=== PATIENT | male | born 1985 | race Caucasian/White ===

== ENCOUNTER 2020-11-02 07:53 | Inpatient (IN) | payer OTHER ==
[2020-11-02] VITALS (14 sets, daily range): BP systolic 91–138; BP diastolic 65–95
[~2020-11-02] VITALS: Ht 152.4 cm; Wt 47.2 kg
[2020-11-02] MEDS ORDERED: IV NS 0.9% 1,000 ML BAG IV ONE (08:00)
[2020-11-02] MEDS ORDERED: VANCOMYCIN 1 GM in IV D5W 250 ML IV ONE (08:00)
[2020-11-02] MEDS ORDERED: ACETAMINOPHEN 650 MG/SUPP.RECT RC ONE ×2 (08:00→08:02)
[2020-11-02] MEDS ORDERED: PIPERACILLIN /TAZOBACTAM 3.375 G in IV D5W 50 ML IV ONE (08:00)
--- NOTE | 2020-11-02 08:10 | NUR ---
Patient bibra, from care facility, tachypneic/tachycardic/02 desaturation. On vent and trach, GT and huerta in placed. connected to the monitor and pulse ox. kept comfortable, will continue to monitor accordingly. MD at bedside for eval.
--- NOTE | 2020-11-02 08:12 | NUR ---
Cooling measures initiated.
[2020-11-02 08:14] LABS: BASOPHILS # (AUTO) 0.1 /CMM (0.0-0.2); EOSINOPHILS % (AUTO) 1.5 % (0.0-6.0); HEMATOCRIT 39 % (39-51); LYMPHOCYTES # (AUTO) 1.6 /CMM (0.8-4.8); LYMPHOCYTES % (AUTO) 10.9 % (20.0-44.0); MEAN CORPUSCULAR HGB CONC 31 g/dl (31.0-36.0); MEAN CORPUSCULAR VOLUME 81 fL (80-96); MONOCYTES # (AUTO) 0.4 /CMM (0.1-1.30); MONOCYTES % (AUTO) 2.6 % (2.0-12.0); NEUTROPHILS # (AUTO) 12.3 /CMM (1.8-8.9); PLATELET COUNT (AUTO) 564 /CMM (150-450); RED BLOOD CELL COUNT(AUTO) 4.86 MIL/uL (4.5-6.0); WHITE BLOOD COUNT (AUTO) 14.7 K/uL (4.3-11.0)
[2020-11-02 08:22] LABS: CALCIUM, SERUM 8.7 mg/dL (8.5-10.1); CARBON DIOXIDE 23 mmol/L (21-32); CHLORIDE 107 mmol/L (98-107); CREATININE 0.8 mg/dL (0.6-1.3); GLUCOSE 146 mg/dL (74-106); POTASSIUM 4.5 mmol/L (3.5-5.1); SODIUM SERUM 146 mmol/L (136-145); UREA NITROGEN, BLOOD 22 mg/dL (7-18)
[2020-11-02 08:26] LABS: BILIRUBIN,URINE Negative (NEGATIVE); COLOR,URINE YELLOW (YELLOW); LEUKOCYTE ESTERASE ,URINE Small (NEGATIVE); NITRITE, URINE Positive (NEGATIVE); PROTEIN,URINE Negative (NEGATIVE); UGLUCOSE Negative (NEGATIVE); UROBILINOGEN,URINE 0.2 EU/dL (0.2)
[2020-11-02 08:28] LABS: BACTERIA,URINE Few /HPF (None Seen); HYALINE CASTS, URINE Few /LPF (None Seen); SQUAMOUS EPITHELIAL CELL,UR Rare /HPF (None Seen)
[2020-11-02] MEDS ORDERED: ENOX30DI SQ (08:33)
[2020-11-02] MEDS ORDERED: NA P133E RC (08:33)
[2020-11-02] MEDS ORDERED: BISA10SU11 RC (08:33)
[2020-11-02] MEDS ORDERED: ACET325T53 PO (08:33)
[2020-11-02] MEDS ORDERED: TPN (08:33)
[2020-11-02] MEDS ORDERED: CHLO473M3 MM (08:33)
[2020-11-02] MEDS ORDERED: LEVA15HF4 IH ×2 (08:33)
[2020-11-02 08:35] LABS: ALANINE AMINOTRANSFERASE 81 U/L (12-78); ALBUMIN 3.2 g/dL (3.4-5.0); ALKALINE PHOSPHATASE 432 U/L (46-116); ASPARTATE AMINOTRANSFERASE 46 U/L (15-37); BILIRUBIN,DIRECT 1.6 mg/dL (0.0-0.2); BILIRUBIN,TOTAL 1.9 mg/dL (0.2-1.0); TOTAL PROTEIN, SERUM 9.3 g/dL (6.4-8.2)
[2020-11-02 08:36] LABS: B-TYPE NATRIURETIC PEPTIDE 21 PG/ML (0-125)
[2020-11-02 09:08] LABS: ABG BASE EXCESS -7.6 mmol/L; ABG OXYGEN SATURATION 98.8 % (92.0-98.5); ABG PCO2 32.7 mmHg (35.0-45.0); ABG PH 7.339 (7.350-7.450); ABG PO2 177.3 mmHg (75.0-100.0); AaDO2 70.3 mmHg; COHb 0.3 % (0.5-1.5); MetHb 0.7 % (0.0-1.5); O2Hb 97.8 % (94.0-97.0); PEEP,BG 5 cm H2O; SITE, ABG Right Brachial; VT, ABG 450 mL
[2020-11-02] MEDS ORDERED: IV NS 0.9% 250 ML IV ONE (09:20)
[2020-11-02] MEDS ORDERED: CT SWABBABLE VALVE TRANS SET 1 EA INFUS.SET MC ONE (09:20)
[2020-11-02] MEDS ORDERED: IOHEXOL-300 100 ML VIAL IV ONE (09:20)
--- NOTE | 2020-11-02 09:26 | NUR ---
BED 258
--- NOTE | 2020-11-02 09:33 | NUR ---
covid 19 swab collected and sent to lab
--- NOTE | 2020-11-02 09:45 | NUR ---
report given to Laureen WINSTON for torin
--- NOTE | 2020-11-02 10:28 | NUR ---
wheeled patient via gurney accompanied by RN, RT, and emt in no distress. RN at bedside to assume care.
[2020-11-02] MEDS ORDERED: PIPERACILLIN /TAZOBACTAM 3.375 G in IV D5W 50 ML IV SCH ×2 (10:30→10:45)
[2020-11-02] MEDS ORDERED: IV D5/ 0.9% NACL 1,000 ML IV PRN (10:30)
--- NOTE | 2020-11-02 10:30 | NUR ---
RN INITIAL NOTES RECEIVED PT FROM ER VIA PO. PT OPEN EYES, DOES NOT FOLLOWS COMMAND. TRACH IN PLACE, ON VENT. NO RESPIRATORY DISTRESS NOTED. NO SOB NOTED. NO SIGNS OF PAIN NOTED. PT CONNECTED TO MONITOR, HR 130S-140S NOTED. LOLA PICC AND CANO IN PLACE, PRESENT ON ADMISSION. GTUBE AND JTUBE TO DRAIN BY GRAVITY. SKIN INTACT. DR BALDWIN NOTIFIED. AWAITING ADMISSION ORDERS. WILL CLOSELY MONITOR
[2020-11-02] MEDS: IV D5/ 0.9% NACL 1,000 ML IV PRN (11:20)
--- NOTE | 2020-11-02 12:00 | NUR ---
RN NOTES [address] DOHERTY. AWARE OF CURRENT'S STATUS, ADMISSION ORDERS MADE. MD CALLED MAXIMINO (MOTHER) AND DISCUSSED PLAN OF CARE [address] ALVARENGA. AWARE OF CT CHEST/ABDOMEN/PELVIS. PER MD, NO SURGICAL INTERVENTION NEEDED. WILL MONITOR
[2020-11-02] MEDS ORDERED: BISACODYL SUPP (10 MG) 10 MG/SUPP.RECT SUPP.RECT RC PRN (12:30)
[2020-11-02] MEDS ORDERED: ACETAMINOPHEN 325 MG TABLET PO PRN (12:30)
[2020-11-02] MEDS ORDERED: IPRATROPIUM NEB FS 0.5 MG/2.5 ML AMPUL.NEB NEB PRN (12:30)
[2020-11-02] MEDS ORDERED: METOPROLOL TARTRATE 25 MG TABLET JT SCH (12:30)
[2020-11-02] MEDS ORDERED: IV NS 0.9% 1,000 ML IV ONE ×2 (12:30→22:00)
[2020-11-02] MEDS ORDERED: MEROPENEM 500 MG in IV NS 0.9% 50 ML IV SCH (13:00)
[2020-11-02] MEDS: MICAFUNGIN SODIUM 100 MG in IV NS 0.9% 100 ML IV SCH (13:57)
[2020-11-02] MEDS ORDERED: PIPERACILLIN /TAZOBACTAM 3.375 G in IV D5W 100 ML IV SCH (14:00)
[2020-11-02] MEDS: MEROPENEM 1 G in IV NS 0.9% 100 ML IV SCH ×2 (15:12→22:51)
[2020-11-02] MEDS: VANCOMYCIN 0.75 GM in IV D5W 250 ML IV SCH (16:58)
--- NOTE | 2020-11-02 17:33 | NUR ---
PT. 35 Y OLD MALE REC. IN ER @ 8867 TRACH'Christo SRINIVASA # 6 PLACED ON VENT WITH NOTED SETTINGS, PER MD ORDER ALARMS ARE SET AND FUNCTIONAL, CONTINUE TO MONITOR. B/S BILATERALLY RALES SUCTIONED FOR SMALL WHITE SECRETIONS. AMBU BAG REMAIN AT THE BEDSIDE. ABG DONE RESULTS REPORTED TO ER MD PT. TRANSFERRED CT THAN TO ICU AND REPORT WILL BE PASS TO SATELLITE DISH TECHNICIAN. Addendum: 11/02/20 at 1737 by HELENA KAM RT Amended: Links added.
--- NOTE | 2020-11-02 18:50 | NUR ---
RN CLOSING NOTES NO SIGNIFICANT CHANGE NOTED. NO RESPIRATORY DISTRESS NOTED. NO SOB NOTED. IVF INFUSING. GTUBE AND JTUBE REMAINS CONNECTED TO DRAIN BY GRAVITY. CANO IN PLACE. KEPT CLEAN AND DRY.KEPT COMFORTABLE. WILL ENDORSE FOR CONTINUITY OF CARE
--- NOTE | 2020-11-02 19:00 | NUR ---
RN NOTE RECEIVED PATIENT IN BED, NON VERBAL, IN NO S/SX OF ACUTE DISTRESS AT THIS TIME, ON TRACH SHILEY#6 CONNECTED TO MECHANICAL VENTILATOR WITH SETTINGS FOLLOWS: AC 20, TV 450, FIO2 40%, PEEP 15, SATURATION AT 100%, ST ON THE MONITOR, HR IS 103. NOTED BUE BLE CONTRACTED. NOTED LOLA PICC LINE, ALL HUBS PATENT AND FLUSHING WELL, NO S/S OF INFECTION, WITH D5 NS INFUSING AT 100 ML/HR. NOTED GTUBE DRAINING TO A GREENISH OUTPUT, AND JTUBE DRAINING TO A YELLOWISH OUTPUT, CONNECTED TO DRAIN BY GRAVITY. CANO CATHETER CONNECTED TO URINE BAG IN PLACE, DRAINING TO A CLEAR YELLOW OUTPUT. SAFETY MEASURES IMPLEMENTED. PATIENT BED ALARM IS ON. HEAD OF BED ELEVATED. BED IS LOCKED, IN LOWEST POSITION AND SIDE RAILS UP. CALL LIGHT WITHIN REACH OF THE PATIENT. WILL CONTINUE TO MONITOR AND REASSESS FOR ANY CHANGES.
--- NOTE | 2020-11-02 19:45 | NUR ---
PT RCVD TRACH'D SHIILEY 6 ON VENT WITH THE SETTINGS OF AC 20, VT 450, FIO2 40% , PEEP 5. SX DONE. VENT PLUGGED INTO RED OUTLET, VENT ALARMS ON AND AUDIBLE. LIABILITY CLAIMS ADJUSTER DONE. WILL CONTINUE TO MONITOR THE PT T/O THE SHIFT
--- NOTE | 2020-11-02 21:00 | NUR ---
RN NOTE NOTED PATIENT WITH SCHEDULED MEDICATION METOPROLOL 25 MG, HOWEVER BP AT LOW 90'S, BP AT 2115 82/58, CURRENTLY ON NPO STATUS WITH GTUBE AND JTUBE CONNECTED TO DRAIN BY GRAVITY DUE TO COMPLEX RETROPERITONEAL COLLECTION POSSIBLE HEMATOMA OR ABSCESS. DR BALDWIN WAS NOTIFIED, CURRENT HR 107. ORDERS RECEIVED TO DISCONTINUE METOPROLOL 25MG, AND TO ADMINISTER NS 1000 ML BOLUS. TRAILER TECHNICIAN MADE AWARE.
[2020-11-03] VITALS (27 sets, daily range): BP systolic 87–119; BP diastolic 60–97
[2020-11-03] MEDS: VANCOMYCIN 0.75 GM in IV D5W 250 ML IV SCH ×3 (00:04→16:41)
[2020-11-03] MEDS: IV D5/ 0.9% NACL 1,000 ML IV PRN ×2 (03:52→21:04)
[2020-11-03 04:25] LABS: BASOPHILS % (AUTO) 0.7 % (0.0-2.0); EOSINOPHILS % (AUTO) 0.9 % (0.0-6.0); HEMATOCRIT 27 % (39-51); HEMOGLOBIN 8.5 g/dL (13.5-17.5); LYMPHOCYTES # (AUTO) 0.7 /CMM (0.8-4.8); LYMPHOCYTES % (AUTO) 18.1 % (20.0-44.0); MEAN CORPUSCULAR HGB CONC 32 g/dl (31.0-36.0); MEAN CORPUSCULAR VOLUME 80 fL (80-96); MONOCYTES # (AUTO) 0.2 /CMM (0.1-1.30); MONOCYTES % (AUTO) 5.6 % (2.0-12.0); NEUTROPHILS % (AUTO) 74.7 % (43.0-81.0); PLATELET COUNT (AUTO) 210 /CMM (150-450); RED BLOOD CELL COUNT(AUTO) 3.32 MIL/uL (4.5-6.0); WHITE BLOOD COUNT (AUTO) 4.1 K/uL (4.3-11.0)
[2020-11-03 04:36] LABS: CALCIUM, SERUM 6.5 mg/dL (8.5-10.1); CREATININE 0.5 mg/dL (0.6-1.3); MAGNESIUM 1.5 mg/dL (1.8-2.4)
[2020-11-03 04:48] LABS: POTASSIUM 2.4 mmol/L (3.5-5.1)
[2020-11-03] MEDS: MEROPENEM 1 G in IV NS 0.9% 100 ML IV SCH ×3 (06:06→23:11)
--- NOTE | 2020-11-03 07:14 | NUR ---
RN NOTE PATIENT REMAINS IN BED, NON VERBAL, ON TRACH SHILEY#6 CONNECTED TO MECHANICAL VENTILATOR WITH SETTINGS FOLLOWS: AC 20, TV 450, FIO2 40%, PEEP 15, SATURATION AT 100%, ST ON THE MONITOR, HR IS AT 100-110'S. D5 NS INFUSING AT 100 ML/HR VIA LOLA PICC LINE. NOTED GTUBE DRAINING TO A GREENISH OUTPUT, AND JTUBE DRAINING TO A YELLOWISH OUTPUT, CONNECTED TO DRAIN BY GRAVITY. CANO CATHETER CONNECTED TO URINE BAG IN PLACE. SAFETY MEASURES IMPLEMENTED. PATIENT BED ALARM IS ON. HEAD OF BED ELEVATED. BED IS LOCKED, IN LOWEST POSITION AND SIDE RAILS UP. ENDORSED TO FERNANDA WINSTON FOR CONTINUATION OF CARE
[2020-11-03] MEDS: POTASSIUM CL. PREMIX PERIPHER. 50 ML IV SCH ×8 (09:55→18:50)
[2020-11-03] MEDS: Magnesium 1GM/D5W 100ML PREMIX 100 ML IV SCH ×2 (10:29→11:44)
[2020-11-03] MEDS: MICAFUNGIN SODIUM 100 MG in IV NS 0.9% 100 ML IV SCH (13:22)
--- NOTE | 2020-11-03 14:11 | NUR ---
RN NOTE 0715: Received patient awake, does not comprehend. All extremities contracted. With trache, tolerated settings. ST 100's in the monitor. LOLA PICC intact, IVF infusing as ordered. Cortez cath intact, noted with cuco colored urine drained to BSD. With GT and JT intact, both to BSD. 0815: S/E by Dr. Qureshi, K supplement ongoing. 0900: S/E by Dr. Mccauley, no new order at this time. 1100: Mother visited and signed consent CT abscess drainage. Awaiting IR for schedule. 1400: No any significant changes noted at this time. Kept clean, warm and dry. Turned and repositioned q2. Will continue POC.
--- NOTE | 2020-11-03 21:54 | NUR ---
ICU/MISSILE CONTROL PILOT PT HAS POSITIVE BLOOD CULTURE OF GRAM POSITIVE COCCI IN BLOOD. PT IS CURRENTLY ON MERREM, VANCO, AND MYCAMINE. DR BALDWIN WAS CALLED ABOUT THIS, NO NEW ORDERS WERE RECEIVED.
[2020-11-04] VITALS (22 sets, daily range): BP systolic 91–124; BP diastolic 54–90
[2020-11-04] MEDS: VANCOMYCIN 0.75 GM in IV D5W 250 ML IV SCH ×3 (00:57→16:51)
[2020-11-04 05:06] LABS: CALCIUM, SERUM 7.4 mg/dL (8.5-10.1); CREATININE 0.4 mg/dL (0.6-1.3); MAGNESIUM 1.8 mg/dL (1.8-2.4); POTASSIUM 2.9 mmol/L (3.5-5.1)
[2020-11-04] MEDS: IV D5/ 0.9% NACL 1,000 ML IV PRN ×2 (06:09→11:42)
[2020-11-04] MEDS: MEROPENEM 1 G in IV NS 0.9% 100 ML IV SCH ×3 (06:10→23:20)
--- NOTE | 2020-11-04 07:40 | NUR ---
ICU/RN PT IS CHRONIC TRAC ON THE VENT ,AC MODE,FIO2-40%.SAT O2-100%.V/S STABLE,AFEBRILE.NO PAIN REPORTED AT THIS TIME.OPEN EYES ,NOT FOLLOWS COMMAND.RESPONDIG ON PAIN STIMULATION.CONTRACTED.G-TUBE AND J-TUBE DRAINING TO GRAVITY.F/C IN PLACE DRAINING WITH YELLOW URINE.PT IS NPO.LABS REVIEW. NOTIFIED.NEW ORDERS RECIEVED.SUCTION PROVIDED REPOSITION FOR COMFORT.
[2020-11-04] MEDS ORDERED: POTASSIUM CHLORIDE 10 MEQ/50 ML PREMIXED IVPB FOR PERIPHERAL LINE IV ONE (08:00)
[2020-11-04] MEDS: POTASSIUM CL. PREMIX PERIPHER. 50 ML IV SCH ×4 (08:16→10:59)
[2020-11-04] MEDS ORDERED: POTASSIUM CL. PREMIX PERIPHER. 50 ML IV SCH (08:30)
[2020-11-04] MEDS ORDERED: TPN/PPN PER PHARMACY XX PRN (08:30)
[2020-11-04] MEDS ORDERED: DEXTROSE 50%-WATER 50 ML DISP.SYRIN IV PRN (08:30)
--- NOTE | 2020-11-04 09:00 | NUR ---
ICU/RN DUE MEDS ARE GIVEN.TPN STARTED ORDERED. CONTINUE MONITORING.
[2020-11-04] MEDS: BLOOD SUGAR DIAGNOSTIC 1 EACH STRIP IN SCH ×3 (11:00→23:31)
[2020-11-04] MEDS: MICAFUNGIN SODIUM 100 MG in IV NS 0.9% 100 ML IV SCH (11:01)
[2020-11-04] MEDS ORDERED: POTASSIUM PHOSPHATE MM 15 MMOL in IV NS 0.9% 250 ML IV ONE (14:00)
--- NOTE | 2020-11-04 18:20 | NUR ---
ICU/RN PT TRANSFERRED TO [facility] .V/S STABLE,AFEBRILE. DUE MEDS ARE GIVEN ORDERED.REPORT GIVEN TO CARLIE/RN.
--- NOTE | 2020-11-04 18:30 | NUR ---
Patient transferred here to room 107 accompanied by nurse and RT.
--- NOTE | 2020-11-04 19:18 | NUR ---
RN CLOSING NOTE Patient in bed awake appears calm and relaxed. On vent and trach. LOLA Midline running K phos, TPN and d5NS. Jtube, gtube draining by gravity. FC draining clear yellow urine. Vital signs within normal limits. Safety measures reinforced. Endorsed to lieutenant shift supervisor nurse for torin.
--- NOTE | 2020-11-04 19:30 | NUR ---
RN OPENING NOTES: RECEIVED NON VERBAL PT IN BED RESTING COMFORTABLY. PATIENT IN NO S/SX OF ACUTE DISTRESS AT THIS TIME. NO SOB NOTED. PATIENT'S BREATHING IS EVEN AND UNLABORED. PATIENT ON MECHANICAL VENT; SETTINGS PRESCRIBED; PT TOLERATED WELL. AMBU BAG AT BED SIDE ALARMS SET PER PROTOCOL AND AUDIBLE. VENT PLUGGED IN TO RED OUTLET. NO DISTRESS NOTED. PATIENT ON TELE MONITORING READING SINUS RHYTHM HR IS @90S AT THE TIME OF RECEIVED. NOTED G TUBE FOR STOMACH DRAIN; INTACT AND SECURED DRAINING MODERATE AMOUNT OF GREENISH BLACK OUTPUT MODERATE IN AMOUNT.PT ALSO HAS A J TUBE FOR BOWEL DRAIN; INTACT AND SECURED .DRAINING YELLOWISH/ORANGE OUTPUT MINIMAL IN AMOUNT. PATIENT ON NPO BUT WITH ONGOING TPN. NOTED IV SITE ON L UA PICC LINE; PATENT, INTACT AND FLUSHING WELL; NO S/S OF INFECTION OR INFILTRATION. WITH IV FLUID RUNNING ORDERED. CANO CATH IN PLACE, MODERATE URINE OUTPUT NOTED. SAFETY MEASURES HAVE BEEN PROVIDED AND IMPLEMENTED. PATIENT BED ALARM IS ON. HEAD OF BED ELEVATED. BED IS LOCKED, IN LOWEST POSITION AND SIDE RAILS UP. CALL LIGHT WITHIN REACH OF THE PATIENT. APPLICABLE ISOLATION PRECAUTIONS IN PLACE. WILL CONTINUE TO MONITOR AND REASSESS FOR ANY CHANGES AND WILL CARRY OUT ANY ONGOING AND ACTIVE MD ORDER. ]
--- NOTE | 2020-11-04 21:15 | NUR ---
RN NOTES PATIENT'S FAMILY CALLED TO GET UPDATES. SPOKE WITH ([phone]), PROVIDED GENERAL UPDATES ABOUT PT'S CONDITION.V/S WNL AND STABLE AT THIS TIME. ASSURED PATIENT RELATIVE THAT WILL KEEP THEM POSTED FOR ANY SUDDEN CHANGES TO PT'S CONDITION. FAMILY VERY THANKFUL ABOUT CARE BEING PROVIDED TO THE PATIENT. RN ACKNOWLEDGED.
--- NOTE | 2020-11-04 23:00 | NUR ---
RN NOTES NO CHANGE IN PATIENT CONDITION AT THIS TIME PATIENT VITALS STABLE, NO SIGNS OF ACUTE RESPIRATORY DISTRESS. PETROLEUM SAMPLER MADE AWARE. WILL CONTINUE TO MONITOR AND REASSESS FOR ANY CHANGES THROUGHOUT THE SHIFT
--- NOTE | 2020-11-04 23:32 | NUR ---
RN NOTES ACCU CHECK DONE 105MG/DL; NO COVERAGE PER SLIDING SCALE.
[2020-11-04] MEDS: INSULIN REGULAR, HUMAN 100 UNIT/ML 3 ML VIAL SQ PRN (23:33)
[2020-11-05] VITALS: BP 115/82
[2020-11-05] MEDS: VANCOMYCIN 0.75 GM in IV D5W 250 ML IV SCH ×2 (00:30→08:59)
[2020-11-05 04:00] VITALS: BP 122/72
--- NOTE | 2020-11-05 04:00 | NUR ---
RN NOTES PATIENT REMAINS IN NO ACUTE RESPIRATORY DISTRESS AT THIS TIME, NO CHANGES TO CONDITION/STATUS. AM PATIENT CARE DONE. PROTOCOL OFFICER WELL AWARE. WILL CONTINUE TO MONITOR AND REASSESS FOR ANY CHANGES THROUGHOUT THE SHIFT
[2020-11-05] MEDS: IV D5/ 0.9% NACL 1,000 ML IV PRN (05:00)
[2020-11-05] MEDS: BLOOD SUGAR DIAGNOSTIC 1 EACH STRIP IN SCH ×3 (05:08→17:30)
[2020-11-05] MEDS: INSULIN REGULAR, HUMAN 100 UNIT/ML 3 ML VIAL SQ PRN (05:09)
--- NOTE | 2020-11-05 05:09 | NUR ---
RN NOTES ACCU CHECK DONE 107MG/DL; NO COVERAGE PER SLIDING SCALE.
[2020-11-05] MEDS: MEROPENEM 1 G in IV NS 0.9% 100 ML IV SCH ×3 (06:17→22:04)
--- NOTE | 2020-11-05 06:57 | NUR ---
RN CLOSING NOTE: PATIENT REMAINS IN ROOM IN NO SIGNS OF RESPIRATORY DISTRESS; STILL ON VENT SETTING PER ORDERED. SAFETY MEASURES IMPLEMENTED, BED IN LOWEST POSITION, LOCKED, SIDE RAILS UP, CALL LIGHT WITHIN REACH. ALL NEEDS AND ORDERS ADDRESSED DURING THE SHIFT. IV ACCESS MAINTAINED INTACT, SECURED AND FLUSHING WELL. ALL DUE MEDS GIVEN ORDERED & SCHEDULED ; PATIENT TOLERATED WELL. PATIENT KEPT CLEAN AND COMFORTABLE WITHIN THE SHIFT. PATIENT ENDORSED TO INCOMING SHIFT RN WITH STABLE VITAL SIGN AND FOR CONTINUITY OF CARE.
[2020-11-05 07:03] LABS: BASOPHILS % (AUTO) 0.6 % (0.0-2.0); EOSINOPHILS % (AUTO) 4.7 % (0.0-6.0); HEMATOCRIT 34 % (39-51); HEMOGLOBIN 10.6 g/dL (13.5-17.5); LYMPHOCYTES # (AUTO) 1.2 /CMM (0.8-4.8); MEAN CORPUSCULAR HGB CONC 31 g/dl (31.0-36.0); MEAN CORPUSCULAR VOLUME 80 fL (80-96); MONOCYTES # (AUTO) 0.1 /CMM (0.1-1.30); MONOCYTES % (AUTO) 4.7 % (2.0-12.0); NEUTROPHILS # (AUTO) 1.3 /CMM (1.8-8.9); PLATELET COUNT (AUTO) 212 /CMM (150-450); RED BLOOD CELL COUNT(AUTO) 4.22 MIL/uL (4.5-6.0); WHITE BLOOD COUNT (AUTO) 2.8 K/uL (4.3-11.0)
[2020-11-05 07:30] LABS: CALCIUM, SERUM 8.6 mg/dL (8.5-10.1); CREATININE 0.5 mg/dL (0.6-1.3); MAGNESIUM 1.5 mg/dL (1.8-2.4)
--- NOTE | 2020-11-05 07:59 | NUR ---
RT PATIENT REC'D TRACHED ON [facility] VENT WITH ORDERED SETTINGS LAWRENCE WELL. PATIENT AWAKE, NON- RESPONSIVE, NO SOB AT THIS TIME. AIRWAY CHECKED + PATENT, SX'D AND LAWRENCE WELL. VENT ALARMS CHECKED + AUDIBLE. MARILINU BAG AT HOB. Addendum: 11/07/20 at 1155 by KENNETH SILVA RT Amended: Links added.
[2020-11-05 08:00] VITALS: BP_SYST 141; BP_SYST 144; BP_DIAS 100
[2020-11-05] MEDS ORDERED: POTASSIUM CHLORIDE 10 MEQ/50 ML PREMIXED IVPB FOR PERIPHERAL LINE IV ONE (08:00)
--- NOTE | 2020-11-05 08:00 | NUR ---
RN NOTES RECEIVED PATIENT TRACHEA VENT DEPENDENT, NO ACUTE RESPIRATORY DISTRESS, SUCTION, MOUTH CARE. DONE. IV ACCESS MAINTAINED INTACT ON LEFT UA INFUSING TPN @50ML/HR, D5NS AT 50ML/HR, AND TKO, SECURED AND FLUSHING WELL. ALL DUE MEDS GIVEN. CANO INTACT DRAINING VIA GRAVITY. PATIENT HAS GT AND J TUBE DRAINING VIA GRAVITY. PATIENT SKIN INTACT, ASSIST TURN AND REPOSTION A Q 2 HR. REPLACING LOW KCL, AND MG PER MD ORDER. WILL MONITORING.
[2020-11-05] MEDS: Magnesium 1GM/D5W 100ML PREMIX 100 ML IV SCH ×4 (08:45→13:15)
[2020-11-05] MEDS: POTASSIUM CL. PREMIX PERIPHER. 50 ML IV SCH ×6 (08:48→18:51)
[2020-11-05 12:00] VITALS: BP 122/88
--- NOTE | 2020-11-05 12:00 | NUR ---
TISH RICHARDSON BS-11MG/DL, PATIENT , LOBS IS TAKEN. Addendum: 11/05/20 at 1903 by ANDREA BLUE RN bs-111mg/dl jelly richardson.
[2020-11-05] MEDS: MICAFUNGIN SODIUM 100 MG in IV NS 0.9% 100 ML IV SCH (13:19)
[2020-11-05] MEDS ORDERED: POTASSIUM PHOSPHATE MM 15 MMOL in IV NS 0.9% 250 ML IV SCH (15:00)
[2020-11-05 16:00] VITALS: BP 114/82
--- NOTE | 2020-11-05 18:30 | NUR ---
RN NOTES PATIENT STABLE, PM CARE DONE, SUCTION, PATIENT HAS LATS OF SECRETION, MOUTH CARE DONE, DUE MEDICATION ADMINISTERED, INFUSING TPN @50ML/HR, D5NS AT 50ML/HR, AND KCL LAST BAG. CANO DRAINING WELL, J TUBE, GT INTACT DRAINING WELL. ASSIST TURN AND REPOSTION Q 2 HR. ENDORSED ONCOMING NURSE FOLLOW DEMETRIA.
--- NOTE | 2020-11-05 19:42 | NUR ---
RN OPENING NOTE REC'D PT IN BED. EYES ABLE TO OPEN. TRACH TO VENT. SETTINGS SH 6 AC 20 TV 450 FIO2 40% PEEP5 TOLERATING WELL. PT IS NSR WITH HR OF 98, BASELINE TO PT. NO DISTRESS OR SOB NOTED. IV SITE LOLA FLUSHED. IVF RUNNING ORDERED NO S/S OF INFILTRATION NOTED. PT REMAINS WITH TPN RUNNING. GTUBE AND J TUBE PRESENT, DRAINING VIA GRAVITY. CANO CATH DRAINING VIA GRAVITY. PT IS CONTRACTED AND FLEXED BUE/BLE. SAFETY MEASURES IN PLACE. HOB ELEVATED. SIDE RAILS UP X2 BED LOCKED IN LOWEST POSITION.UNABLE TO USE CALL LIGHT. WILL CONT TO MONITOR THROUGHOUT SHIFT.
[2020-11-05 20:00] VITALS: BP 113/74
[2020-11-06] VITALS: BP 109/86
[2020-11-06] MEDS: INSULIN REGULAR, HUMAN 100 UNIT/ML 3 ML VIAL SQ PRN ×4 (00:27→23:22)
[2020-11-06] MEDS: BLOOD SUGAR DIAGNOSTIC 1 EACH STRIP IN SCH ×5 (00:27→23:22)
--- NOTE | 2020-11-06 02:03 | NUR ---
RN NOTE BED BATH DONE, PT NEEDS TO BE SUCTIONED FREQUENTLY.
[2020-11-06 04:00] VITALS: BP 103/77
[2020-11-06] MEDS ORDERED: VANCOMYCIN HCL 0.75 GM in IV D5W 250 ML IV SCH (06:00)
[2020-11-06] MEDS: VANCOMYCIN 1 GM in IV D5W 250ml IV SCH ×2 (06:19→17:01)
[2020-11-06 06:42] LABS: ALBUMIN 2.6 g/dL (3.4-5.0); BILIRUBIN,TOTAL 1.5 mg/dL (0.2-1.0); CALCIUM, SERUM 8.5 mg/dL (8.5-10.1); CREATININE 0.4 mg/dL (0.6-1.3); MAGNESIUM 1.9 mg/dL (1.8-2.4); PHOSPHORUS 1.4 mg/dL (2.5-4.9); POTASSIUM 3.2 mmol/L (3.5-5.1); TOTAL PROTEIN, SERUM 7.4 g/dL (6.4-8.2)
--- NOTE | 2020-11-06 07:05 | NUR ---
RN NOT RECEIVED PT ON BED, EYES OPEN. DOES NOT FOLLOW COMMAND , VENT/TRACH DEPENDENT,TOLERAING VENT SETTING WELL,ON TELE ST HR IN 100'S, NO DISTRESS OR SOB NOTED. LEFT UPPER ARM IV SITE CLEAN, DRY AND INTACT, IVF RUNNING ORDERED NO S/S OF INFILTRATION NOTED. TPN AT 50CC/HR RUNNING, GTUBE AND J TUBE PRESENT, DRAINING VIA GRAVITY. CANO CATH DRAINING VIA GRAVITY. PT IS CONTRACTED AND FLEXED BUE/BLE. SAFETY MEASURES IN PLACE. HOB ELEVATED. SIDE RAILS UP X3 BED LOCKED AND IN LOWEST POSITION. WILL CONT TO MONITOR CLOSELY .
--- NOTE | 2020-11-06 07:15 | NUR ---
RN CLOSING NOTES PT REMAINS IN BED, ON SAME VENT SETTINGS. NO DISTRESS OR SOB NOTED AT THIS TIME. PT TOLERATING VENT. O2 SAT IS 97% AT THIS TIME. SAFETY MEASURES IN PLACE. HOB ELEVATED. SIDE RAILS UP X2 BED LOCKED IN LOWEST POSITION. ENDORSED TO AM NURSE FOR CONTINUATION OF CARE.
[2020-11-06] MEDS: MEROPENEM 1 G in IV NS 0.9% 100 ML IV SCH ×3 (07:38→23:16)
--- NOTE | 2020-11-06 07:55 | NUR ---
RT PATIENT REC'D TRACHED ON [facility] VENT WITH ORDERED SETTINGS LAWRENCE WELL. PATIENT AWAKE, NON- RESPONSIVE, NO SOB AT THIS TIME. AIRWAY CHECKED + PATENT, SX'D AND LAWRENCE WELL. VENT ALARMS CHECKED + AUDIBLE. MARILINU BAG AT HOB. Addendum: 11/07/20 at 1155 by KENNETH SILVA RT Amended: Links added.
[2020-11-06 08:00] VITALS: BP 107/73
[2020-11-06] MEDS: POTASSIUM PHOSPHATE MM 7.5 MMOL in IV NS 0.9% 100 ML IV SCH ×4 (09:29→19:09)
[2020-11-06] MEDS ORDERED: IOHEXOL-350 100 ML VIAL IV ONE (09:32)
[2020-11-06] MEDS ORDERED: IV NS 0.9% 250 ML IV ONE (09:33)
[2020-11-06] MEDS: IV D5/ 0.9% NACL 1,000 ML IV PRN (10:27)
[2020-11-06 12:00] VITALS: BP 121/83
[2020-11-06 16:00] VITALS: BP 125/89
--- NOTE | 2020-11-06 18:00 | NUR ---
RN NOTES NO SIGNIFICANT CHANGES NOTED ON THIS SHIFT , TRACH CARE DONE PRN, VSS STABLE, WILL ENDORSE TO BALLOON SELLER NURSE FOR CONTINUITY OF CARE .
--- NOTE | 2020-11-06 19:32 | NUR ---
RN OPENING NOTES: Rec'd pt in bed, nonverbal. Pt on trach to mechanical vent tolerating settings well. No resp distress noted at this time. SR on tele monitor. LOLA PICC patent and flushed w/ TPN infusing at 50ml/hr, and D5NS at 50ml/hr. JT and GT sites draining via gravity. Cortez cath patent and draining urine via gravity. Safety measures in place, will continue to monitor.
[2020-11-06 20:00] VITALS: BP 121/91
[2020-11-06] MEDS ORDERED: TPN BAG #4 IV SCH (21:00)
[2020-11-07] VITALS: BP 122/97
[2020-11-07 04:00] VITALS: BP 114/93
[2020-11-07] MEDS: VANCOMYCIN 1 GM in IV D5W 250ml IV SCH (05:15)
[2020-11-07] MEDS: BLOOD SUGAR DIAGNOSTIC 1 EACH STRIP IN SCH ×2 (05:29→12:37)
[2020-11-07] MEDS: INSULIN REGULAR, HUMAN 100 UNIT/ML 3 ML VIAL SQ PRN (05:30)
[2020-11-07] MEDS: MEROPENEM 1 G in IV NS 0.9% 100 ML IV SCH (06:26)
[2020-11-07] MEDS: IV D5/ 0.9% NACL 1,000 ML IV PRN (06:26)
[2020-11-07 07:06] LABS: ALBUMIN 2.7 g/dL (3.4-5.0); BILIRUBIN,TOTAL 1.5 mg/dL (0.2-1.0); TOTAL PROTEIN, SERUM 7.8 g/dL (6.4-8.2)
--- NOTE | 2020-11-07 07:20 | NUR ---
RN Opening Note Patient received in bed, nonverbal. Pt on trach to mechanical vent tolerating settings well. No respiratory distress noted at this time. LOLA PICC patent and flushed with TPN infusing at 50ml/hr, and D5NS at 50ml/hr. JT and GT sites draining via gravity. Cortez catheter patent and draining urine via gravity. Safety measures implemented, side rails up x2, bed locked in lowest position, call light withing reach. Will continue to monitor and provide care throughout shift.
--- NOTE | 2020-11-07 07:59 | NUR ---
RT PATIENT REC'D TRACHED ON [facility] VENT WITH ORDERED SETTINGS LAWRENCE WELL. PATIENT AWAKE, NON- RESPONSIVE, NO SOB AT THIS TIME. AIRWAY CHECKED + PATENT, SX'D AND LAWRENCE WELL. VENT ALARMS CHECKED + AUDIBLE. MARILINU BAG AT HOB. Addendum: 11/07/20 at 1155 by KENNETH SILVA RT Amended: Links added.
[2020-11-07 08:00] VITALS: BP 132/93
[2020-11-07 08:22] LABS: CALCIUM, SERUM 8.9 mg/dL (8.5-10.1); CREATININE 0.4 mg/dL (0.6-1.3); MAGNESIUM 1.6 mg/dL (1.8-2.4); PHOSPHORUS 1.8 mg/dL (2.5-4.9); POTASSIUM 3.6 mmol/L (3.5-5.1)
[2020-11-07] MEDS ORDERED: FAT EMULSION 20% 500 ML in PREMIX 1 EA IV SCH (09:00)
[2020-11-07] MEDS ORDERED: VANC1PLA9 IV (09:03)
[2020-11-07] MEDS ORDERED: RXVAN XX (09:03)
[2020-11-07] MEDS ORDERED: Sodium Phosphate 15 MMOL in IV NS 0.9% 245 ML IV SCH (10:00)
[2020-11-07] MEDS: Magnesium 1GM/D5W 100ML PREMIX 100 ML IV SCH ×2 (10:43→11:58)
[2020-11-07 12:00] VITALS: BP 139/89
--- NOTE | 2020-11-07 15:19 | NUR ---
patient discharged from hospital in stable condition. patient discharge paperwork and instructions provided for family prior to discharge. report given to Lexsi at [facility] ([facility]). patient care transferred over to [facility] for transportation to [facility].
[2020-11-07] MEDS ORDERED: TPN BAG #5 IV SCH (17:00)
== END 2020-11-07 14:36 | DRG 721 ==
LOC: ER 07:56 → ICU 10:42 → TELE1 11-04 18:03 → TELE-TD 11-04 18:45 → TELE1 11-07 08:18
PROVIDERS: ADMIT Internal Medicine; ATTEND Internal Medicine
PROC: 5A1955Z Respiratory Ventilation, Greater than 96 Consecutive Hours (ICD-10-PCS; principal; 2020-11-02)
DX: T80.211A Bloodstream infection due to central venous catheter, initial encounter (principal); R65.21 Severe sepsis with septic shock; E43 Unspecified severe protein-calorie malnutrition; J95.851 Ventilator associated pneumonia; Z99.11 Dependence on respirator [ventilator] status; J96.10 Chronic respiratory failure, unspecified whether with hypoxia or hypercapnia; A41.9 Sepsis, unspecified organism; K56.609 Unspecified intestinal obstruction, unspecified as to partial versus complete obstruction; E83.39 Other disorders of phosphorus metabolism; K31.84 Gastroparesis; E83.42 Hypomagnesemia; E87.6 Hypokalemia; G80.8 Other cerebral palsy; N39.0 Urinary tract infection, site not specified; B96.1 Klebsiella pneumoniae [K. pneumoniae] as the cause of diseases classified elsewhere; Z93.1 Gastrostomy status; Z93.0 Tracheostomy status; Z68.20 Body mass index [BMI] 20.0-20.9, adult; K68.19 Other retroperitoneal abscess; Y84.8 Other medical procedures as the cause of abnormal reaction of the patient, or of later complication, without mention of misadventure at the time of the procedure; H54.7 Unspecified visual loss; B95.7 Other staphylococcus as the cause of diseases classified elsewhere; Z20.822 Contact with and (suspected) exposure to COVID-19; Y72.8 Miscellaneous otorhinolaryngological devices associated with adverse incidents, not elsewhere classified; Y92.129 Unspecified place in nursing home as the place of occurrence of the external cause
CPT/HCPCS: 31720; 36415; 36600; 71045-TC; 71260-TC; 80048-TC; 80076-TC; 80202-TC; 81001; 82040-TC; 82803-TC; 82962-TC; 83605-TC; 83735-TC; 83880; 84100-TC; 84478-TC; 84484-TC; 85025-TC; 85730-TC; 87040-TC; 87081-TC; 87086-TC; 87186-TC; 94002-TC; 94003-TC; 94760-TC; 94762-TC; 94799-TC; 99082-TC; A4216; A4623; A7526; A9563; G0378; J1815; J2185; J2248; J2543; J3370; J3475; J3480; J3490; J7030; J7040; J7042; J7050; J7060; Q9967; U0003

== ENCOUNTER 2020-11-14 14:03 | Emergency (ER) | payer OTHER ==
[~2020-11-14] VITALS: Ht 121.9 cm; Wt 50.8 kg
[~2020-11-14 14:03] MED LIST: ACET325T53 PO; BISA10SU11 RC; CHLO473M3 MM; ENOX30DI SQ; LEVA15HF4 IH; NA P133E RC; RXVAN XX; TPN; VANC1PLA9 IV
[2020-11-14] MEDS ORDERED: TPN ADD IV (14:13)
[2020-11-14] MEDS ORDERED: ACET650S11 RC (14:13)
[2020-11-14] MEDS ORDERED: VANC750P15 IV (14:13)
[2020-11-14] MEDS: IV NS 0.9% 1,000 ML BAG IV ONE ×2 (14:34→17:10)
--- NOTE | 2020-11-14 14:34 | NUR ---
BIBRA78 FROM SNF, C/O TACHYCARDIA. PT EYES OPEN, NON VERBAL. ON TRACH, PLACED ON VENT, RR EVEN & UNLABORED. PLACED ON PAYMENT MANAGER, ST. PT SEEN & EVAL'D BY DR. ORTEGA. WILL CONT TO MONITOR.
--- NOTE | 2020-11-14 14:40 | NUR ---
PT. RECEIVED AND PLACED TO [facility] VENT VIA TRACH SHILEY #6DCT WITH FOLLOWING SETTINGS PER EMT: AC 20, VT 450, FIO2 40%, PEEP +5. BREATH SOUNDS RHONCHI BILATERAL VENT PLUGGED INTO RED OUTLET WITH ALARMS ON AND FUNCTIONAL. ARON @ BEDSIDE. Addendum: 11/14/20 at 1443 by MOJGAN PEDROZA RT Amended: Links added.
[2020-11-14 15:17] LABS: BASOPHILS # (AUTO) 0.1 /CMM (0.0-0.2); BASOPHILS % (AUTO) 0.7 % (0.0-2.0); EOSINOPHILS % (AUTO) 6.9 % (0.0-6.0); HEMATOCRIT 39 % (39-51); HEMOGLOBIN 11.7 g/dL (13.5-17.5); LYMPHOCYTES # (AUTO) 2.1 /CMM (0.8-4.8); LYMPHOCYTES % (AUTO) 16.7 % (20.0-44.0); MEAN CORPUSCULAR HGB CONC 30 g/dl (31.0-36.0); MEAN CORPUSCULAR VOLUME 82 fL (80-96); MONOCYTES # (AUTO) 0.6 /CMM (0.1-1.30); MONOCYTES % (AUTO) 4.6 % (2.0-12.0); NEUTROPHILS # (AUTO) 8.9 /CMM (1.8-8.9); NEUTROPHILS % (AUTO) 71.1 % (43.0-81.0); PLATELET COUNT (AUTO) 258 /CMM (150-450); WHITE BLOOD COUNT (AUTO) 12.5 K/uL (4.3-11.0)
--- NOTE | 2020-11-14 15:27 | NUR ---
GAVE MOVESHEET TO ADMITTING FOR INSUR. AUTH
[2020-11-14 15:33] LABS: ABG BASE EXCESS -1.5 mmol/L; ABG OXYGEN SATURATION 98.7 % (92.0-98.5); ABG PCO2 38.3 mmHg (35.0-45.0); ABG PH 7.398 (7.350-7.450); ABG PO2 175.9 mmHg (75.0-100.0); AaDO2 65.3 mmHg; COHb 0.4 % (0.5-1.5); MetHb 0.5 % (0.0-1.5); O2Hb 97.8 % (94.0-97.0); PEEP,BG 5 cm H2O; SITE, ABG A-Line; VT, ABG 450 mL
[2020-11-14 15:35] LABS: ALANINE AMINOTRANSFERASE 258 U/L (12-78); ALBUMIN 2.9 g/dL (3.4-5.0); ALKALINE PHOSPHATASE 452 U/L (46-116); ASPARTATE AMINOTRANSFERASE 125 U/L (15-37); BILIRUBIN,TOTAL 1.3 mg/dL (0.2-1.0); CALCIUM, SERUM 8.5 mg/dL (8.5-10.1); CARBON DIOXIDE 26 mmol/L (21-32); CREATININE 0.6 mg/dL (0.6-1.3); GLUCOSE 102 mg/dL (74-106); POTASSIUM 3.7 mmol/L (3.5-5.1); TOTAL PROTEIN, SERUM 8.2 g/dL (6.4-8.2); UREA NITROGEN, BLOOD 47 mg/dL (7-18)
--- NOTE | 2020-11-14 15:37 | NUR ---
FIO2 DECREASED FROM 40% TO 28% DUE TO 100% SPO2 AND 176 PAO2. RN NOTIFIED ON VENT CHANGES MADE. Addendum: 11/14/20 at 1538 by MOJGAN PEDROZA RT Amended: Links added.
[2020-11-14 15:45] LABS: SODIUM SERUM 163 mmol/L (136-145)
[2020-11-14 15:46] LABS: CHLORIDE 126 mmol/L (98-107)
--- NOTE | 2020-11-14 16:40 | NUR ---
JEFFREY PATEL FROM [facility] [phone].
--- NOTE | 2020-11-14 16:40 | NUR ---
PT RESTING, NO RESP DISTRESS NOTED. ON TELE, ST. WILL CONT TO MONITOR. AUNT AT BS.
--- NOTE | 2020-11-14 16:44 | NUR ---
DR. BALDWIN SPEAKING TO DR. ORTEGA.
--- NOTE | 2020-11-14 16:45 | NUR ---
SPOKE WITH JEFFREY PATEL FROM [facility]. UPDATED RE: PATIENT FAMILY WANTED [facility] (PER DR. BALDWIN). PRIMARY NURSE AWARE. Addendum: 11/14/20 at 1649 by DESHAUN FAX# [phone].
[2020-11-14] MEDS: PIPERACILLIN /TAZOBACTAM 3.375 G in IV D5W 50 ML IV ONE (17:11)
--- NOTE | 2020-11-14 17:30 | NUR ---
PER JEFFREY PATEL PATIENT GOING TO [place], WILL CALL BACK WITH INFO
--- NOTE | 2020-11-14 17:31 | NUR ---
RT NOTE, PT. 35 YEAR OLD MALE TRACH SHILEY # 6 ON VENT REMAIN STABLE IN ER # 5 WITH NOTED SETTINGS, ALARMS ARE SET AND FUNCTIONAL, VENT PLUGGED INTO RED OUTLET, NO DISTRESS. LAWRENCE. VENT SETTINGS, BILATERAL CHEST RISE NOTED, AMBU BAG REMAIN AT THE BEDSIDE. B/S BILATERALLY RALES, SUX'D FOR MODERATE WHITE THIN SECRETIONS PT. REMAIN STABLE. FAMILY MEMBER AT THE BEDSIDE. REPORT WILL PASS TO PM SHIFT. Addendum: 11/14/20 at 1734 by HELENA KAM RT Amended: Links added.
[2020-11-14] MEDS: VANCOMYCIN 1 GM in IV D5W 250 ML IV ONE (17:50)
--- NOTE | 2020-11-14 17:57 | NUR ---
FAXED COVID RESULT TO BONNY PATEL
--- NOTE | 2020-11-14 18:53 | NUR ---
PT STABLE, RR EVEN & UNLABORED. ON TELE, ST. NAD NOTED AT THIS TIME. WILL CONT TO MONITOR.
--- NOTE | 2020-11-14 18:57 | NUR ---
MAGGIE MAHER ROOM #509 CALL FOR REPORT TO [phone] JORGE ([phone]) WILL CALL TO GIVE KNIFE EDGER TIME
--- NOTE | 2020-11-14 18:58 | NUR ---
KAI GARCIAS) CELL# [phone]
--- NOTE | 2020-11-14 19:25 | NUR ---
REPORT GIVEN TO NIKA DAVIS. ENDORSED TO MANAGER PAYER RN TO CALL BACK NIKA ONCE ETA'S KNOWN.
--- NOTE | 2020-11-14 19:33 | NUR ---
VENT SETTINGS PEEP: 5 TV:450 RATE:20 FIO2: 28%
--- NOTE | 2020-11-14 20:48 | NUR ---
REPORT GIVEN TO [facility]AVAN RN UNIT 102 FOR DEMETRIA
[2020-11-14 20:49] VITALS: BP 96/70
== END 2020-11-14 21:11 | disposition short-term general hospital (02) ==
LOC: ER 14:03
DX: A41.9 Sepsis, unspecified organism (principal); J18.9 Pneumonia, unspecified organism; G80.8 Other cerebral palsy; J96.10 Chronic respiratory failure, unspecified whether with hypoxia or hypercapnia; Z99.11 Dependence on respirator [ventilator] status; Z20.822 Contact with and (suspected) exposure to COVID-19; M41.9 Scoliosis, unspecified; Z88.1 Allergy status to other antibiotic agents; Z88.8 Allergy status to other drugs, medicaments and biological substances; K31.84 Gastroparesis; Z93.1 Gastrostomy status; Z93.0 Tracheostomy status; R00.0 Tachycardia, unspecified
CPT/HCPCS: 36415; 36600 ×2; 71045; 80048; 80076; 82803; 83605; 84145; 84484; 85025; 85730; 87040 ×2; 87426; 93005; 96361; 96365; 96375; 99291; C9803; J2543; J3370; J7030 ×2; J7060

== ENCOUNTER 2020-11-19 07:54 | Inpatient (IN) | payer OTHER ==
[~2020-11-19] VITALS: Ht 121.9 cm; Wt 45.8 kg
[~2020-11-19 07:54] MED LIST changes: -ACET325T53 PO; +ACET650S11 RC; -RXVAN XX; -TPN; +TPN ADD IV; -VANC1PLA9 IV; +VANC750P15 IV
[2020-11-19] MEDS ORDERED: IV NS 0.9% 1,000 ML BAG IV ONE (08:00)
[2020-11-19] MEDS ORDERED: PIPERACILLIN /TAZOBACTAM 3.375 G in IV D5W 50 ML IV ONE (08:00)
[2020-11-19] MEDS ORDERED: VANCOMYCIN 1 GM in IV D5W 250 ML IV ONE (08:00)
--- NOTE | 2020-11-19 08:00 | NUR ---
ARDHA Chiang FROM [facility] C/O ELEVATED HEART RATE RECENTLY ADMITTED FOR [facility]PS[facility] PER EMS. DR. GÓMEZ AT BEDSIDE FOR EVAL.
[2020-11-19] MEDS ORDERED: CEFE1VIA3 IV (08:27)
[2020-11-19 08:45] LABS: BASOPHILS % (AUTO) 0.1 % (0.0-2.0); EOSINOPHILS % (AUTO) 6.1 % (0.0-6.0); HEMATOCRIT 35 % (39-51); HEMOGLOBIN 10.9 g/dL (13.5-17.5); LYMPHOCYTES # (AUTO) 0.9 /CMM (0.8-4.8); LYMPHOCYTES % (AUTO) 12.1 % (20.0-44.0); MEAN CORPUSCULAR HGB CONC 32 g/dl (31.0-36.0); MEAN CORPUSCULAR VOLUME 79 fL (80-96); MONOCYTES # (AUTO) 0.2 /CMM (0.1-1.30); MONOCYTES % (AUTO) 2.8 % (2.0-12.0); NEUTROPHILS # (AUTO) 5.7 /CMM (1.8-8.9); NEUTROPHILS % (AUTO) 78.9 % (43.0-81.0); PLATELET COUNT (AUTO) 174 /CMM (150-450); RED BLOOD CELL COUNT(AUTO) 4.36 MIL/uL (4.5-6.0); WHITE BLOOD COUNT (AUTO) 7.3 K/uL (4.3-11.0)
--- NOTE | 2020-11-19 08:51 | NUR ---
SPOKE TO JEFFREY PATEL , FAX
[2020-11-19 09:08] LABS: ALANINE AMINOTRANSFERASE 132 U/L (12-78); ALKALINE PHOSPHATASE 362 U/L (46-116); ASPARTATE AMINOTRANSFERASE 56 U/L (15-37); BILIRUBIN,DIRECT 0.8 mg/dL (0.0-0.2); BILIRUBIN,TOTAL 1.3 mg/dL (0.2-1.0); CALCIUM, SERUM 8.6 mg/dL (8.5-10.1); CARBON DIOXIDE 25 mmol/L (21-32); CHLORIDE 108 mmol/L (98-107); CREATININE 0.6 mg/dL (0.6-1.3); GLUCOSE 91 mg/dL (74-106); POTASSIUM 4.6 mmol/L (3.5-5.1); SODIUM SERUM 142 mmol/L (136-145); TOTAL PROTEIN, SERUM 8.1 g/dL (6.4-8.2); UREA NITROGEN, BLOOD 22 mg/dL (7-18)
--- NOTE | 2020-11-19 10:28 | NUR ---
received a call from [facility] and faxed negative covid result.
--- NOTE | 2020-11-19 10:40 | NUR ---
URINE SENT TO LAB
[2020-11-19 10:49] LABS: BILIRUBIN,URINE SMALL (NEGATIVE); COLOR,URINE YELLOW (YELLOW); LEUKOCYTE ESTERASE ,URINE Negative (NEGATIVE); NITRITE, URINE Negative (NEGATIVE); PH,URINE 6.5 (5.0-8.0); PROTEIN,URINE 100 mg/dl (NEGATIVE); UGLUCOSE Negative (NEGATIVE); UROBILINOGEN,URINE 0.2 EU/dL (0.2)
[2020-11-19 10:52] LABS: BACTERIA,URINE Rare /HPF (None Seen); SQUAMOUS EPITHELIAL CELL,UR Few /HPF (None Seen); WBC,URINE NONE SEEN /HPF (0-3)
--- NOTE | 2020-11-19 15:49 | NUR ---
Called [facility] MURPHY from [facility] in regards with bed and will call back for update
--- NOTE | 2020-11-19 16:19 | NUR ---
CALLED [facility] FOR TELE BED
--- NOTE | 2020-11-19 17:04 | NUR ---
called Dr. Qureshi and will put admission orders.
--- NOTE | 2020-11-19 17:28 | NUR ---
GOT BED 119
--- NOTE | 2020-11-19 17:34 | NUR ---
Report given to Ashley WINSTON for torin
--- NOTE | 2020-11-19 18:15 | NUR ---
RN OPENING NOTE ADMIT 35 YEAR OLD MALE FROM ER TO [facility] AT ROOM 118 ON MECHANICAL VENT SETTING KRISLEY #6 AC 20 TV 450 FIO2:40% PEEP 5 O2:100% NON VERBAL CONFUSED,OBTUNDED,IV SITE IS ON LEFT UPPER ARM PICC LINE,INTACT PATENT,CANO CATHETER IN PLACE URINE DRAINING YELLOW AND CLEAR ON G-TUBE ,ALSO G-TUBE SITE DRAINING,ON BAG BROWN AND DARK FLUID AND JEJUNUM SITE ALSO DRAINING BROWN AND DARK FLUID HEAD OF BED ELEVATED,SAFETY MEASURE IMPLEMENT CONTINUE TO MONITOR LEFT AND RIGHT FOOT DEFORMITY ALSO LEFT AND RIGHT HAND DEFORMITY
--- NOTE | 2020-11-19 18:21 | NUR ---
wheeled patient via gurney accompanied by RT, RN and emt in no distress. Rn assigned at bedside to assume care.
[2020-11-19] MEDS ORDERED: ALBUTEROL FS 2.5 MG/3 ML VIAL.NEB NEB PRN (19:00)
[2020-11-19] MEDS ORDERED: ACETAMINOPHEN 650 MG/SUPP.RECT RC PRN (19:00)
[2020-11-19] MEDS: IV 1/2NS 1000 ML 1,000 ML IV PRN (19:10)
[2020-11-19 19:20] VITALS: BP 116/75
[2020-11-19] MEDS: ALBUTEROL FS 2.5 MG/3 ML VIAL.NEB NEB SCH (19:33)
[2020-11-19] MEDS: CEFEPIME 1 GM in IV D5W 50 ML IV SCH (19:49)
[2020-11-19 20:00] VITALS: BP 105/69
[2020-11-19] MEDS: METOPROLOL TARTRATE 25 MG TABLET PO SCH (20:07)
[2020-11-19] MEDS ORDERED: ENOXAPARIN SODIUM 30 MG/0.3 ML DISP.SYRIN SQ SCH (22:00)
[2020-11-20] VITALS: BP 116/75
[2020-11-20] MEDS: ALBUTEROL FS 2.5 MG/3 ML VIAL.NEB NEB SCH ×3 (01:37→13:45)
[2020-11-20] MEDS: CEFEPIME 1 GM in IV D5W 50 ML IV SCH ×2 (03:27→12:04)
[2020-11-20 04:00] VITALS: BP 116/75
--- NOTE | 2020-11-20 07:14 | NUR ---
RN CLOSING NOTE PATIENT REMAINS ON ALERT OBTUNDED ON MECHANICAL VENT,NPO NO SOB NOT ACUTE DISTRESS NOTED HEAD OF BED ELEVATED ALL THE TIME,KEPT CLEAN AND DRY ALL THE TIME,ENDORSE NEXT COMING SHIFT FOR CONTINUATION OF CARE
[2020-11-20 07:16] LABS: BASOPHILS % (AUTO) 0.3 % (0.0-2.0); EOSINOPHILS % (AUTO) 18.5 % (0.0-6.0); HEMATOCRIT 25 % (39-51); HEMOGLOBIN 8.1 g/dL (13.5-17.5); LYMPHOCYTES # (AUTO) 1.1 /CMM (0.8-4.8); LYMPHOCYTES % (AUTO) 30.5 % (20.0-44.0); MEAN CORPUSCULAR HGB CONC 32 g/dl (31.0-36.0); MEAN CORPUSCULAR VOLUME 78 fL (80-96); MONOCYTES # (AUTO) 0.2 /CMM (0.1-1.30); MONOCYTES % (AUTO) 5.1 % (2.0-12.0); NEUTROPHILS # (AUTO) 1.7 /CMM (1.8-8.9); NEUTROPHILS % (AUTO) 45.6 % (43.0-81.0); PLATELET COUNT (AUTO) 146 /CMM (150-450); RED BLOOD CELL COUNT(AUTO) 3.24 MIL/uL (4.5-6.0); WHITE BLOOD COUNT (AUTO) 3.7 K/uL (4.3-11.0)
[2020-11-20 07:43] LABS: ALBUMIN 2.6 g/dL (3.4-5.0); BILIRUBIN,TOTAL 1.1 mg/dL (0.2-1.0); CALCIUM, SERUM 8.5 mg/dL (8.5-10.1); CREATININE 0.5 mg/dL (0.6-1.3); POTASSIUM 3.3 mmol/L (3.5-5.1)
--- NOTE | 2020-11-20 08:02 | NUR ---
Patient asks for ambulation assist bathroom [facility]. When television writer arrived to disconnect patient IV, he denies need to use restroom. Asks for ice water and pain medication. Unable to give prn morphine at this time. Has order for norco moderate pain if needed. Patient request for regular diet, scrambled egg, turkey amezquita, and cream of wheat. Elias Marquez RN Addendum: 11/20/20 at 0805 by [facility]IENT RN5 TISH Incorrect chart, disregard above
[2020-11-20] MEDS: IV 1/2NS 1000 ML 1,000 ML IV PRN (08:39)
--- NOTE | 2020-11-20 09:14 | NUR ---
US ABD LIMITED EXAM WAS ORDERED ON 11/19/20 AT 18:31. SINCE EXAM WAS NOT DONE ON 11/19 AND PER RN, JORDY PT IS BEING DISCHARGED TODAY RN CANCELED THE EXAM.
[2020-11-20 09:27] VITALS: BP 103/48
[2020-11-20] MEDS: METOPROLOL TARTRATE 25 MG TABLET PO SCH (09:27)
[2020-11-20] MEDS ORDERED: POTASSIUM CHLORIDE 20 MEQ TAB.PRT.SR PO SCH (11:30)
--- NOTE | 2020-11-20 15:37 | NUR ---
Patient discharge with a copy of exit care instructions and all belongings. Elias Marquez RN
== END 2020-11-20 15:24 | DRG 201 ==
LOC: ER 07:56 → TELE1 17:32
PROVIDERS: ADMIT Internal Medicine; ATTEND Internal Medicine
PROC: 5A1945Z Respiratory Ventilation, 24-96 Consecutive Hours (ICD-10-PCS; principal; 2020-11-19)
DX: R00.0 Tachycardia, unspecified (principal); E43 Unspecified severe protein-calorie malnutrition; K56.699 Other intestinal obstruction unspecified as to partial versus complete obstruction; Z93.0 Tracheostomy status; K31.84 Gastroparesis; G80.9 Cerebral palsy, unspecified; Z20.822 Contact with and (suspected) exposure to COVID-19; Z87.01 Personal history of pneumonia (recurrent); R74.01 Elevation of levels of liver transaminase levels; Z93.4 Other artificial openings of gastrointestinal tract status; Z93.1 Gastrostomy status; H54.7 Unspecified visual loss; Z68.30 Body mass index [BMI] 30.0-30.9, adult
CPT/HCPCS: 31720; 36415; 71045-TC; 80048-TC; 80053-TC; 80076-TC; 81001; 83605-TC; 84484-TC; 85025-TC; 85730-TC; 86850-TC; 87040-TC; 87081-TC; 87086-TC; 94003-TC; 94760-TC; C9803; G0378; J0692; J1650; J2543; J3370; J3490; J7030; J7060; U0003

== ENCOUNTER → 2020-11-23 | Emergency (ER) | payer OTHER ==
[~2020-11-23] VITALS: Ht 121.9 cm; Wt 46.3 kg
[~2020-11-23] MED LIST changes: +CEFE1VIA3 IV; -VANC750P15 IV
[2020-11-23 05:55] VITALS: BP 76/42
--- NOTE | 2020-11-23 05:55 | NUR ---
PT WAS BIBRA 78 FROM [facility] FOR C/O TAHCYCARDIA AND BEING PALE "5 MINUTES PRIOR CALLING 911" PER EMS. PT VERY PALE ON ARRIVAL . WAS PLACED ON BED 8 , ON MONITOR. RT AT BED SIDE TO PLACE W/ HR OF 62 AND LOW SBP OF 70s ON ARRIVAL. PT HAS 2 GASTROSTOMY TUBES (GT&jt?)IN PLACE CONNECTED TO A URINARY BAG DRRAINING BLOODY FLUID. F/C , AND TRACH IN PLACE WELL. PT REMAINED ON EMPLOYEE RELATION MANAGER. WILL CONT TO MONITOR PT CLOSELY
--- NOTE | 2020-11-23 06:09 | NUR ---
CALLED [facility] AND SPOKE TO SHAMIM TO VERIFY CODE STATUS. PT IS DNR. DR MCCANN MADE AWARE
--- NOTE | 2020-11-23 06:14 | NUR ---
RT NOTE PATIENT RECEIVED TRACH'D WITH SRINIVASA #6 DCT ON MECHANICAL VENT. TRACH IS PATENT AND SECURE. PT PLACED ON RECEIVED SETTINGS OF AC20 VT450 100% PEEP+5. SUCTIONED FOR THICK, SMALL, BROWN SECRETIONS. ALARMS SET AND AUDIBLE. MECHANICAL VENT PLUGGED INTO RED OUTLET. EMERGENCY EQUIPMENT AT PATIENT BEDSIDE. WAITING FOR FURTHER ORDERS. Addendum: 11/23/20 at 0617 by JAQUAN ROOT RT Amended: Links added.
--- NOTE | 2020-11-23 06:21 | NUR ---
time of per dr. napoles 0621.
--- NOTE | 2020-11-23 06:35 | NUR ---
[facility] AND REPORTED. PER BARKER NOT OXYACETYLENE CUTTER'S CASE.
--- NOTE | 2020-11-23 06:44 | NUR ---
CALLED BROTHER TOMAS. NO ANSWER. MAIL BOX FULL AND UNABLE TO LEAVE A MESSAGE
--- NOTE | 2020-11-23 06:46 | NUR ---
CALLED , SORAYA, BROTHER. NO ANSWER. LEFT A MESSAGE
--- NOTE | 2020-11-23 06:48 | NUR ---
[facility] CALLED AND REPORTED. WILL NOT CONTINUE WITH PROCESS. CC#[id number]
--- NOTE | 2020-11-23 06:51 | NUR ---
CALLED MAXIMINO , THE MOM AND INFORMED HER REGARDING THE PT'S . PT'S BROTHER WILL BE HERE TO ARRANGE PICKING UP THE BODY AND MORTUARY
--- NOTE | 2020-11-23 07:31 | NUR ---
PAGED DR SARMIENTO AND SPOKE TO ROBB TO REPAGE THE DR
--- NOTE | 2020-11-23 07:33 | NUR ---
RC'D A CALL FROM DR SARMIENTO. MADE AWARE OF THE PT'S .
--- NOTE | 2020-11-23 11:20 | NUR ---
PICKED UP BY [facility]
== END ==
LOC: ER 05:58
DX: J96.10 Chronic respiratory failure, unspecified whether with hypoxia or hypercapnia (principal); G40.909 Epilepsy, unspecified, not intractable, without status epilepticus; D64.9 Anemia, unspecified; Z93.1 Gastrostomy status; Z88.8 Allergy status to other drugs, medicaments and biological substances